=== PATIENT | female | born 1955 | race Caucasian/White ===

== ENCOUNTER 2017-09-04 20:00 | Inpatient (IN) | payer MEDICARE, OTHER ==
[2017-09-04 23:33] LABS: URINE PH (Dip) POC 5.5 (5.0-8.5)
[2017-09-04 23:33] LABS: URINE BLOOD (Dip) POC Trace-intact (NEGATIVE); URINE KETONES (Dip) POC Negative (NEGATIVE); URINE LEUKOCYTE EST (Dip) POC 1+ (NEGATIVE); URINE NITRITE (Dip) POC Positive (NEGATIVE); URINE TOTAL PROTEIN POC 1+ (NEGATIVE)
[2017-09-04] MEDS: ASPIRIN 325 MG TAB PO (23:50)
[2017-09-04] MEDS: NITROGLYCERIN 2% 1 GM OINT PKT TD (23:55)
[2017-09-04] MEDS: ONDANSETRON 4 MG INJ IV (23:55)
[2017-09-04] MEDS: HYDROmorphONE 0.5 MG/0.5 ML SYG IV (23:55)
[2017-09-05] LABS: ADD MAN DIFF? NO
[2017-09-05 00:04] LABS: BASOPHILS % 0.3 % (0.0-2.0); EOSINOPHILS # 0.1 10^3/ul (0.0-0.5); EOSINOPHILS % 1.2 % (0.0-7.0); HEMOGLOBIN 10.8 g/dl (12.0-16.0); LYMPHOCYTES # 1.9 10^3/ul (0.8-2.9); LYMPHOCYTES % 16.9 % (15.0-51.0); MEAN CORPUSCULAR HEMOGLOBIN 26.2 pg (29.0-33.0); MEAN CORPUSCULAR HGB CONC 30.9 g/dl (32.0-37.0); MEAN CORPUSCULAR VOLUME 84.7 fl (82.0-101.0); MEAN PLATELET VOLUME 11.3 fl (7.4-10.4); MONOCYTE # 0.7 10^3/ul (0.3-0.9); MONOCYTES % 6.5 % (0.0-11.0); NEUTROPHIL # 8.2 10^3/ul (1.6-7.5); NEUTROPHILS % 74.6 % (39.0-77.0); PLATELET COUNT 238 10^3/UL (140-415); RED BLOOD COUNT 4.13 10^6/ul (4.20-5.40); RED CELL DISTRIBUTION WIDTH 13.3 % (11.5-14.5)
[2017-09-05 00:20] LABS: INR 0.97
[2017-09-05 00:21] LABS: PARTIAL THROMBOPLASTIN TIME 30.1 Sec (25.0-35.0)
[2017-09-05 00:25] LABS: ALANINE AMINOTRANSFERASE 11 IU/L (13-69); ALBUMIN 4.1 g/dl (3.3-4.9); ALKALINE PHOSPHATASE 132 IU/L (42-121); ANION GAP 19 (8-16); ASPARTATE AMINO TRANSFERASE 13 IU/L (15-46); BLOOD UREA NITROGEN 25 mg/dl (7-20); CALCIUM 9.5 mg/dl (8.4-10.2); CARBON DIOXIDE 24 mmol/L (21-31); CHLORIDE 109 mmol/L (97-110); CREATININE 1.67 mg/dl (0.44-1.00); POTASSIUM 4.1 mmol/L (3.5-5.1); SODIUM 148 mmol/L (135-144); TOTAL PROTEIN 7.8 g/dl (6.1-8.1)
[2017-09-05 00:35] LABS: TROPONIN-I < 0.012 ng/ml (0.00-0.12)
[2017-09-05 00:38] LABS: GLUCOSE 411 mg/dl (70-220)
[2017-09-05] MEDS ORDERED: ACETAMINOPHEN 325 MG TAB PO (02:00)
[2017-09-05] MEDS ORDERED: ONDANSETRON 4 MG INJ IV (02:00)
[2017-09-05] MEDS: INSULIN LISPRO 100 UNIT/ML VIAL SC (02:38)
[2017-09-05] MEDS: HYDROmorphONE 0.5 MG/0.5 ML SYG IV ×2 (02:39→09:44)
[2017-09-05] MEDS ORDERED: ALBUTEROL/IPRATROPIUM (NEB) 3 ML AMP HHN (04:00)
[2017-09-05] MEDS ORDERED: NACL 0.9% 3 ML SYG IV (04:00)
[2017-09-05 06:04] LABS: ADD MAN DIFF? NO
[2017-09-05 06:09] LABS: WHITE BLOOD COUNT 9.7 10^3/ul (4.8-10.8)
[2017-09-05 06:09] LABS: BASOPHILS % 0.4 % (0.0-2.0); EOSINOPHILS # 0.1 10^3/ul (0.0-0.5); EOSINOPHILS % 1.2 % (0.0-7.0); HEMATOCRIT 36.4 % (37.0-47.0); HEMOGLOBIN 11.5 g/dl (12.0-16.0); LYMPHOCYTES # 2.1 10^3/ul (0.8-2.9); LYMPHOCYTES % 21.2 % (15.0-51.0); MEAN CORPUSCULAR HEMOGLOBIN 26.5 pg (29.0-33.0); MEAN CORPUSCULAR HGB CONC 31.6 g/dl (32.0-37.0); MEAN CORPUSCULAR VOLUME 83.9 fl (82.0-101.0); MEAN PLATELET VOLUME 11.5 fl (7.4-10.4); MONOCYTE # 0.8 10^3/ul (0.3-0.9); MONOCYTES % 7.7 % (0.0-11.0); NEUTROPHIL # 6.7 10^3/ul (1.6-7.5); NEUTROPHILS % 69.3 % (39.0-77.0); PLATELET COUNT 237 10^3/UL (140-415); RED BLOOD COUNT 4.34 10^6/ul (4.20-5.40); RED CELL DISTRIBUTION WIDTH 13.5 % (11.5-14.5)
[2017-09-05 06:28] LABS: CREATINE KINASE 29 IU/L (23-200)
[2017-09-05 06:30] LABS: ALANINE AMINOTRANSFERASE 10 IU/L (13-69); ALKALINE PHOSPHATASE 119 IU/L (42-121); ANION GAP 14 (8-16); ASPARTATE AMINO TRANSFERASE 15 IU/L (15-46); BLOOD UREA NITROGEN 26 mg/dl (7-20); CALCIUM 9.6 mg/dl (8.4-10.2); CARBON DIOXIDE 24 mmol/L (21-31); CHLORIDE 114 mmol/L (97-110); CREATININE 1.69 mg/dl (0.44-1.00); GLUCOSE 106 mg/dl (70-220); POTASSIUM 3.9 mmol/L (3.5-5.1); SODIUM 148 mmol/L (135-144)
[2017-09-05 06:31] LABS: ALBUMIN 4.2 g/dl (3.3-4.9); CHOL/HDL RATIO 5.8 RATIO; CHOLESTEROL 206 mg/dl (100-200); HDL CHOLESTEROL 35 mg/dl (35-98); LDL CHOLESTEROL,CALCULATED 133 mg/dl; TRIGLYCERIDES 188 mg/dl (0-149)
[2017-09-05 06:42] LABS: CK INDEX 1.9; CK-MB 0.54 ng/ml (0.0-2.4)
[2017-09-05 07:17] LABS: TROPONIN-I < 0.012 ng/ml (0.00-0.12)
[2017-09-05 07:40] LABS: HEMOGLOBIN A1C 9.4 % (0-5.9)
[2017-09-05] MEDS: INSULIN ASPART [NOVOLOG] 3 ML PEN SC ×7 (08:30→21:00)
[2017-09-05] MEDS: HEPARIN 5,000 UNIT/0.5 ML VIAL SC ×2 (08:32→21:26)
[2017-09-05] MEDS: INSULIN GLARGINE [LANtus] 3 ML PEN SC (08:36)
[2017-09-05] MEDS: ISOSORBIDE MONONITRATE(SR)30 MG TAB PO (08:37)
[2017-09-05] MEDS: FERROUS SULFATE (EC) 325 MG TAB PO (08:37)
[2017-09-05] MEDS: BENAZEPRIL 10 MG TAB PO (08:37)
[2017-09-05] MEDS: FAMOTIDINE 20 MG TAB PO ×2 (08:37→21:22)
[2017-09-05] MEDS: FOLIC ACID 1 MG TAB PO (08:37)
[2017-09-05] MEDS: GABAPENTIN 300 MG CAP PO ×3 (08:37→21:22)
[2017-09-05] MEDS ORDERED: RANITIDINE 150 MG TAB PO (09:00)
[2017-09-05] MEDS: CLOPIDOGREL 75 MG TAB PO (09:44)
[2017-09-05 09:51] LABS: CREATINE KINASE 34 IU/L (23-200)
[2017-09-05 10:05] LABS: CK INDEX 1.4; CK-MB 0.49 ng/ml (0.0-2.4)
[2017-09-05 10:11] LABS: TROPONIN-I < 0.012 ng/ml (0.00-0.12)
[2017-09-05] MEDS: ONDANSETRON 4 MG INJ IV (12:22)
[2017-09-05] MEDS: ACETAMINOPHEN 325 MG TAB PO (12:29)
[2017-09-05] MEDS: METOPROLOL 25 MG TAB PO ×2 (12:32→21:42)
[2017-09-05] MEDS ORDERED: ATORVASTATIN 40 MG TAB PO (21:00)
[2017-09-05] MEDS: SOD CHLORIDE 0.45% 1,000 ML IV (21:21)
[2017-09-05] MEDS: NITROGLYCERIN (SL) 0.4 MG TAB SL (21:22)
[2017-09-05] MEDS: ATORVASTATIN 40 MG TAB PO (22:04)
[2017-09-05] MEDS: FLUOXETINE 20 MG CAP PO (22:04)
[2017-09-06] MEDS: ACCU-CHEK XX (01:01)
[2017-09-06] MEDS: HYDROmorphONE 0.5 MG/0.5 ML SYG IV ×2 (05:55→17:54)
[2017-09-06 06:34] LABS: ADD MAN DIFF? NO
[2017-09-06 06:39] LABS: WHITE BLOOD COUNT 9.8 10^3/ul (4.8-10.8)
[2017-09-06 06:40] LABS: BASOPHILS % 0.3 % (0.0-2.0); EOSINOPHILS # 0.1 10^3/ul (0.0-0.5); EOSINOPHILS % 1.4 % (0.0-7.0); HEMATOCRIT 31.8 % (37.0-47.0); HEMOGLOBIN 9.8 g/dl (12.0-16.0); LYMPHOCYTES # 2.9 10^3/ul (0.8-2.9); LYMPHOCYTES % 29.6 % (15.0-51.0); MEAN CORPUSCULAR HEMOGLOBIN 26.3 pg (29.0-33.0); MEAN CORPUSCULAR HGB CONC 30.8 g/dl (32.0-37.0); MEAN CORPUSCULAR VOLUME 85.5 fl (82.0-101.0); MEAN PLATELET VOLUME 11.8 fl (7.4-10.4); MONOCYTE # 0.7 10^3/ul (0.3-0.9); MONOCYTES % 7.1 % (0.0-11.0); NEUTROPHILS % 61.1 % (39.0-77.0); PLATELET COUNT 228 10^3/UL (140-415); RED BLOOD COUNT 3.72 10^6/ul (4.20-5.40); RED CELL DISTRIBUTION WIDTH 13.8 % (11.5-14.5)
[2017-09-06] MEDS: ACETAMINOPHEN 325 MG TAB PO ×2 (06:58→20:36)
[2017-09-06 07:01] LABS: ALANINE AMINOTRANSFERASE 22 IU/L (13-69); ALBUMIN 3.2 g/dl (3.3-4.9); ALBUMIN/GLOBULIN RATIO 0.96; ALKALINE PHOSPHATASE 102 IU/L (42-121); ANION GAP 17 (8-16); ASPARTATE AMINO TRANSFERASE 17 IU/L (15-46); BLOOD UREA NITROGEN 39 mg/dl (7-20); CALCIUM 8.5 mg/dl (8.4-10.2); CARBON DIOXIDE 24 mmol/L (21-31); CHLORIDE 110 mmol/L (97-110); GLUCOSE 167 mg/dl (70-220); POTASSIUM 4.1 mmol/L (3.5-5.1); SODIUM 147 mmol/L (135-144); TOTAL PROTEIN 6.5 g/dl (6.1-8.1)
[2017-09-06] MEDS: INSULIN GLARGINE [LANtus] 3 ML PEN SC (07:54)
[2017-09-06] MEDS: INSULIN ASPART [NOVOLOG] 3 ML PEN SC ×7 (07:55→20:17)
[2017-09-06 10:11] LABS: IRON 37 ug/dl (35-150)
[2017-09-06] MEDS: HEPARIN 5,000 UNIT/0.5 ML VIAL SC ×2 (10:12→20:50)
[2017-09-06] MEDS: CLOPIDOGREL 75 MG TAB PO (10:14)
[2017-09-06] MEDS: FERROUS SULFATE (EC) 325 MG TAB PO (10:14)
[2017-09-06] MEDS: FAMOTIDINE 20 MG TAB PO ×2 (10:14→20:35)
[2017-09-06] MEDS: ISOSORBIDE MONONITRATE(SR)30 MG TAB PO (10:14)
[2017-09-06] MEDS: GABAPENTIN 300 MG CAP PO ×3 (10:14→20:35)
[2017-09-06] MEDS: FOLIC ACID 1 MG TAB PO (10:14)
[2017-09-06] MEDS: METOPROLOL 25 MG TAB PO ×2 (10:15→20:40)
[2017-09-06] MEDS: BENAZEPRIL 10 MG TAB PO (10:15)
[2017-09-06 10:21] LABS: % IRON SATURATION 20 % SAT (22-52); TOTAL IRON BINDING CAPACITY 186 ug/dl (241-421)
[2017-09-06] MEDS: CEFTRIAXONE 2 GM/50 ML (PMX) 50 ML IVPB (10:41)
[2017-09-06] MEDS: SOD CHLORIDE 0.9% 500 ML IV (10:41)
[2017-09-06] MEDS: SOD CHLORIDE 0.45% 1,000 ML IV (13:10)
[2017-09-06 15:35] LABS: ADD UMIC NO; UR ASCORBIC ACID NEGATIVE (NEGATIVE); UR BILIRUBIN (Dip) NEGATIVE (NEGATIVE); UR BLOOD (Dip) NEGATIVE (NEGATIVE); UR CLARITY CLEAR (CLEAR); UR COLOR STRAW (YELLOW); UR GLUCOSE (Dip) NEGATIVE (NEGATIVE); UR KETONES (Dip) NEGATIVE (NEGATIVE); UR LEUKOCYTE ESTERASE (Dip) NEGATIVE Leu/ul (NEGATIVE); UR NITRITE (Dip) NEGATIVE (NEGATIVE); UR SPECIFIC GRAVITY (Dip) 1.005 (1.003-1.030); UR TOTAL PROTEIN (Dip) NEGATIVE (NEGATIVE); UR UROBILINOGEN (Dip) NEGATIVE (NEGATIVE)
[2017-09-06] MEDS: ATORVASTATIN 40 MG TAB PO (20:35)
[2017-09-06] MEDS: LORAZEPAM 0.5 MG TAB PO (20:35)
[2017-09-06] MEDS: FLUOXETINE 20 MG CAP PO (20:35)
[2017-09-07] MEDS: ACCU-CHEK XX (02:00)
[2017-09-07 05:23] LABS: ADD MAN DIFF? NO
[2017-09-07 05:30] LABS: BASOPHILS % 0.2 % (0.0-2.0); EOSINOPHILS # 0.1 10^3/ul (0.0-0.5); EOSINOPHILS % 1.4 % (0.0-7.0); HEMATOCRIT 33.1 % (37.0-47.0); HEMOGLOBIN 10.2 g/dl (12.0-16.0); LYMPHOCYTES # 2.1 10^3/ul (0.8-2.9); LYMPHOCYTES % 24.6 % (15.0-51.0); MEAN CORPUSCULAR HEMOGLOBIN 26.4 pg (29.0-33.0); MEAN CORPUSCULAR HGB CONC 30.8 g/dl (32.0-37.0); MEAN CORPUSCULAR VOLUME 85.8 fl (82.0-101.0); MEAN PLATELET VOLUME 11.8 fl (7.4-10.4); MONOCYTE # 0.7 10^3/ul (0.3-0.9); MONOCYTES % 8.3 % (0.0-11.0); NEUTROPHIL # 5.5 10^3/ul (1.6-7.5); NEUTROPHILS % 65.1 % (39.0-77.0); PLATELET COUNT 235 10^3/UL (140-415); RED BLOOD COUNT 3.86 10^6/ul (4.20-5.40); RED CELL DISTRIBUTION WIDTH 13.6 % (11.5-14.5)
[2017-09-07 05:30] LABS: WHITE BLOOD COUNT 8.5 10^3/ul (4.8-10.8)
[2017-09-07 05:56] LABS: ANION GAP 16 (8-16); BLOOD UREA NITROGEN 41 mg/dl (7-20); CALCIUM 8.8 mg/dl (8.4-10.2); CARBON DIOXIDE 24 mmol/L (21-31); CHLORIDE 115 mmol/L (97-110); GLUCOSE 166 mg/dl (70-220); POTASSIUM 5.2 mmol/L (3.5-5.1); SODIUM 150 mmol/L (135-144)
[2017-09-07] MEDS: INSULIN ASPART [NOVOLOG] 3 ML PEN SC ×7 (08:10→21:00)
[2017-09-07] MEDS: INSULIN GLARGINE [LANtus] 3 ML PEN SC (08:11)
[2017-09-07] MEDS: ISOSORBIDE MONONITRATE(SR)30 MG TAB PO (08:12)
[2017-09-07] MEDS: GABAPENTIN 300 MG CAP PO ×3 (08:12→23:24)
[2017-09-07] MEDS: METOPROLOL 25 MG TAB PO (08:13)
[2017-09-07] MEDS: FERROUS SULFATE (EC) 325 MG TAB PO ×2 (08:14→10:35)
[2017-09-07] MEDS ORDERED: GLUCAGON 1 MG INJ IM (09:30)
[2017-09-07] MEDS ORDERED: GLUCOSE GEL 15 GRAM TUBE PO ×2 (09:30)
[2017-09-07] MEDS ORDERED: DEXTROSE 50% 50 ML SYRINGE IV ×2 (09:30)
[2017-09-07] MEDS ORDERED: GLUCOSE GEL 15 GRAM TUBE BUCCAL (09:30)
[2017-09-07] MEDS: HYDROmorphONE 0.5 MG/0.5 ML SYG IV (10:34)
[2017-09-07] MEDS: FAMOTIDINE 20 MG TAB PO ×2 (10:34→23:24)
[2017-09-07] MEDS: HEPARIN 5,000 UNIT/0.5 ML VIAL SC ×2 (10:35→23:28)
[2017-09-07] MEDS: FOLIC ACID 1 MG TAB PO (10:35)
[2017-09-07] MEDS: CLOPIDOGREL 75 MG TAB PO (10:35)
[2017-09-07] MEDS: BENAZEPRIL 10 MG TAB PO (10:36)
[2017-09-07] MEDS: CEFTRIAXONE 2 GM/50 ML (PMX) 50 ML IVPB (12:09)
[2017-09-07] MEDS: morphine 2 MG INJ IV (12:09)
[2017-09-07] MEDS: SOD FERRIC GLUC COMPLX 125 MG in SOD CHLORIDE 0.9% 100 ML IVPB (17:44)
[2017-09-07] MEDS: DEXTROSE 5% 1,000 ML IV (17:45)
[2017-09-07] MEDS: FLUOXETINE 20 MG CAP PO (23:25)
[2017-09-07] MEDS: ATORVASTATIN 40 MG TAB PO (23:25)
[2017-09-08] MEDS: ACCU-CHEK XX (02:00)
[2017-09-08] MEDS: HYDROmorphONE 0.5 MG/0.5 ML SYG IV ×4 (02:26→20:20)
[2017-09-08] MEDS: DEXTROSE 5% 1,000 ML IV (03:11)
[2017-09-08] MEDS: HEPARIN 5,000 UNIT/0.5 ML VIAL SC ×3 (05:57→20:26)
[2017-09-08] MEDS: CLOPIDOGREL 75 MG TAB PO (08:35)
[2017-09-08] MEDS: FERROUS SULFATE (EC) 325 MG TAB PO (08:35)
[2017-09-08] MEDS: FOLIC ACID 1 MG TAB PO (08:35)
[2017-09-08] MEDS: FAMOTIDINE 20 MG TAB PO ×2 (08:35→20:20)
[2017-09-08] MEDS: GABAPENTIN 300 MG CAP PO ×3 (08:35→20:20)
[2017-09-08] MEDS: INSULIN ASPART [NOVOLOG] 3 ML PEN SC ×7 (08:37→20:29)
[2017-09-08] MEDS: INSULIN GLARGINE [LANtus] 3 ML PEN SC (08:37)
[2017-09-08 08:53] LABS: ADD MAN DIFF? NO
[2017-09-08 09:02] LABS: BASOPHILS % 0.5 % (0.0-2.0); EOSINOPHILS # 0.1 10^3/ul (0.0-0.5); EOSINOPHILS % 1.1 % (0.0-7.0); HEMATOCRIT 31.4 % (37.0-47.0); HEMOGLOBIN 9.6 g/dl (12.0-16.0); LYMPHOCYTES # 1.8 10^3/ul (0.8-2.9); LYMPHOCYTES % 22.3 % (15.0-51.0); MEAN CORPUSCULAR HEMOGLOBIN 25.9 pg (29.0-33.0); MEAN CORPUSCULAR HGB CONC 30.6 g/dl (32.0-37.0); MEAN CORPUSCULAR VOLUME 84.6 fl (82.0-101.0); MEAN PLATELET VOLUME 11.7 fl (7.4-10.4); MONOCYTE # 0.7 10^3/ul (0.3-0.9); NEUTROPHIL # 5.5 10^3/ul (1.6-7.5); NEUTROPHILS % 66.7 % (39.0-77.0); PLATELET COUNT 234 10^3/UL (140-415); RED BLOOD COUNT 3.71 10^6/ul (4.20-5.40)
[2017-09-08 09:02] LABS: WHITE BLOOD COUNT 8.2 10^3/ul (4.8-10.8)
[2017-09-08 09:31] LABS: ANION GAP 17 (8-16); BLOOD UREA NITROGEN 35 mg/dl (7-20); CALCIUM 8.8 mg/dl (8.4-10.2); CARBON DIOXIDE 22 mmol/L (21-31); CHLORIDE 116 mmol/L (97-110); CREATININE 1.99 mg/dl (0.44-1.00); GLUCOSE 155 mg/dl (70-220); POTASSIUM 4.8 mmol/L (3.5-5.1); SODIUM 150 mmol/L (135-144)
[2017-09-08 09:49] LABS: MAGNESIUM 2.1 mg/dl (1.7-2.5)
[2017-09-08 09:49] LABS: PHOSPHORUS 4.6 mg/dl (2.5-4.9)
[2017-09-08] MEDS: CEFTRIAXONE 2 GM/50 ML (PMX) 50 ML IVPB (11:18)
[2017-09-08] MEDS: LEVOFLOXACIN 500MG/D5W (PMX) 100 ML IVPB (12:33)
[2017-09-08] MEDS ORDERED: AMOXICILLIN 500 MG CAP PO (14:00)
[2017-09-08] MEDS: SOD FERRIC GLUC COMPLX 125 MG in SOD CHLORIDE 0.9% 100 ML IVPB (17:22)
[2017-09-08] MEDS: ATORVASTATIN 40 MG TAB PO (20:19)
[2017-09-08] MEDS: FLUOXETINE 20 MG CAP PO (20:20)
[2017-09-09] MEDS: ACCU-CHEK XX ×2 (02:00→23:22)
[2017-09-09] MEDS: HEPARIN 5,000 UNIT/0.5 ML VIAL SC ×3 (05:26→21:14)
[2017-09-09] MEDS: HYDROmorphONE 0.5 MG/0.5 ML SYG IV ×5 (05:30→22:25)
[2017-09-09] MEDS: INSULIN ASPART [NOVOLOG] 3 ML PEN SC ×7 (08:00→21:00)
[2017-09-09] MEDS: INSULIN GLARGINE [LANtus] 3 ML PEN SC (08:27)
[2017-09-09] MEDS: FERROUS SULFATE (EC) 325 MG TAB PO (08:29)
[2017-09-09] MEDS: FAMOTIDINE 20 MG TAB PO ×2 (08:29→21:13)
[2017-09-09] MEDS: GABAPENTIN 300 MG CAP PO ×3 (08:29→21:12)
[2017-09-09] MEDS: CLOPIDOGREL 75 MG TAB PO (08:29)
[2017-09-09] MEDS: FOLIC ACID 1 MG TAB PO (08:29)
[2017-09-09 09:46] LABS: ADD MAN DIFF? NO
[2017-09-09 09:50] LABS: BASOPHILS % 0.4 % (0.0-2.0); EOSINOPHILS # 0.2 10^3/ul (0.0-0.5); EOSINOPHILS % 2.3 % (0.0-7.0); HEMATOCRIT 31.9 % (37.0-47.0); HEMOGLOBIN 9.9 g/dl (12.0-16.0); LYMPHOCYTES # 1.5 10^3/ul (0.8-2.9); LYMPHOCYTES % 18.4 % (15.0-51.0); MEAN CORPUSCULAR HEMOGLOBIN 26.8 pg (29.0-33.0); MEAN CORPUSCULAR VOLUME 86.4 fl (82.0-101.0); MEAN PLATELET VOLUME 11.7 fl (7.4-10.4); MONOCYTE # 0.8 10^3/ul (0.3-0.9); MONOCYTES % 9.3 % (0.0-11.0); NEUTROPHIL # 5.8 10^3/ul (1.6-7.5); PLATELET COUNT 219 10^3/UL (140-415); RED BLOOD COUNT 3.69 10^6/ul (4.20-5.40); RED CELL DISTRIBUTION WIDTH 13.9 % (11.5-14.5)
[2017-09-09 09:50] LABS: WHITE BLOOD COUNT 8.4 10^3/ul (4.8-10.8)
[2017-09-09 10:08] LABS: BLOOD UREA NITROGEN 33 mg/dl (7-20); CALCIUM 8.9 mg/dl (8.4-10.2); CARBON DIOXIDE 18 mmol/L (21-31); CHLORIDE 115 mmol/L (97-110); CREATININE 2.02 mg/dl (0.44-1.00); GLUCOSE 125 mg/dl (70-220); SODIUM 147 mmol/L (135-144)
[2017-09-09 10:26] LABS: PHOSPHORUS 4.7 mg/dl (2.5-4.9)
[2017-09-09 10:26] LABS: MAGNESIUM 2.2 mg/dl (1.7-2.5)
[2017-09-09 11:57] LABS: ANION GAP 20 (8-16); POTASSIUM 5.6 mmol/L (3.5-5.1)
[2017-09-09] MEDS: NA POLYST SULFON 15 GM/60 ML BTL PO (14:52)
[2017-09-09] MEDS: SOD FERRIC GLUC COMPLX 125 MG in SOD CHLORIDE 0.9% 100 ML IVPB (17:31)
[2017-09-09] MEDS: FLUOXETINE 20 MG CAP PO (21:12)
[2017-09-09] MEDS: ATORVASTATIN 40 MG TAB PO (21:12)
[2017-09-09] MEDS: LORAZEPAM 0.5 MG TAB PO (21:16)
[2017-09-10] MEDS: HYDROmorphONE 0.5 MG/0.5 ML SYG IV ×4 (04:54→21:46)
[2017-09-10] MEDS: HEPARIN 5,000 UNIT/0.5 ML VIAL SC ×3 (04:56→20:36)
[2017-09-10] MEDS: FOLIC ACID 1 MG TAB PO (08:50)
[2017-09-10] MEDS: FERROUS SULFATE (EC) 325 MG TAB PO (08:50)
[2017-09-10] MEDS: CLOPIDOGREL 75 MG TAB PO (08:50)
[2017-09-10] MEDS: GABAPENTIN 300 MG CAP PO ×3 (08:50→20:28)
[2017-09-10] MEDS: FAMOTIDINE 20 MG TAB PO ×2 (08:50→20:28)
[2017-09-10] MEDS: INSULIN ASPART [NOVOLOG] 3 ML PEN SC ×7 (08:53→20:28)
[2017-09-10] MEDS: INSULIN GLARGINE [LANtus] 3 ML PEN SC (08:55)
[2017-09-10 09:01] LABS: ADD MAN DIFF? NO
[2017-09-10 09:07] LABS: WHITE BLOOD COUNT 8.6 10^3/ul (4.8-10.8)
[2017-09-10 09:07] LABS: BASOPHILS % 0.3 % (0.0-2.0); EOSINOPHILS # 0.3 10^3/ul (0.0-0.5); EOSINOPHILS % 3.4 % (0.0-7.0); HEMATOCRIT 31.6 % (37.0-47.0); HEMOGLOBIN 9.6 g/dl (12.0-16.0); LYMPHOCYTES # 1.9 10^3/ul (0.8-2.9); LYMPHOCYTES % 21.8 % (15.0-51.0); MEAN CORPUSCULAR HGB CONC 30.4 g/dl (32.0-37.0); MEAN CORPUSCULAR VOLUME 85.6 fl (82.0-101.0); MEAN PLATELET VOLUME 10.9 fl (7.4-10.4); MONOCYTE # 0.9 10^3/ul (0.3-0.9); MONOCYTES % 10.1 % (0.0-11.0); NEUTROPHIL # 5.5 10^3/ul (1.6-7.5); NEUTROPHILS % 63.7 % (39.0-77.0); PLATELET COUNT 275 10^3/UL (140-415); RED BLOOD COUNT 3.69 10^6/ul (4.20-5.40); RED CELL DISTRIBUTION WIDTH 13.6 % (11.5-14.5)
[2017-09-10 09:21] LABS: ANION GAP 17 (8-16); BLOOD UREA NITROGEN 34 mg/dl (7-20); CARBON DIOXIDE 22 mmol/L (21-31); CHLORIDE 114 mmol/L (97-110); CREATININE 1.88 mg/dl (0.44-1.00); GLUCOSE 149 mg/dl (70-220); SODIUM 148 mmol/L (135-144)
[2017-09-10 09:29] LABS: PHOSPHORUS 5.5 mg/dl (2.5-4.9)
[2017-09-10] MEDS: SOD FERRIC GLUC COMPLX 125 MG in SOD CHLORIDE 0.9% 100 ML IVPB (17:57)
[2017-09-10] MEDS: FLUOXETINE 20 MG CAP PO (20:28)
[2017-09-10] MEDS: ATORVASTATIN 40 MG TAB PO (20:28)
[2017-09-10] MEDS: ACETAMINOPHEN 325 MG TAB PO (20:28)
[2017-09-11] MEDS: ACCU-CHEK XX (01:27)
[2017-09-11] MEDS: LEVOFLOXACIN 250MG/D5W (PMX) 50 ML IVPB (02:26)
[2017-09-11] MEDS: HYDROmorphONE 0.5 MG/0.5 ML SYG IV ×3 (03:50→22:13)
[2017-09-11] MEDS: HEPARIN 5,000 UNIT/0.5 ML VIAL SC ×3 (05:24→21:22)
[2017-09-11 07:56] LABS: ADD MAN DIFF? NO
[2017-09-11] MEDS: INSULIN ASPART [NOVOLOG] 3 ML PEN SC ×7 (08:00→21:00)
[2017-09-11 08:03] LABS: BASOPHILS % 0.2 % (0.0-2.0); EOSINOPHILS # 0.3 10^3/ul (0.0-0.5); EOSINOPHILS % 3.6 % (0.0-7.0); HEMATOCRIT 30.6 % (37.0-47.0); HEMOGLOBIN 9.5 g/dl (12.0-16.0); LYMPHOCYTES # 2.2 10^3/ul (0.8-2.9); LYMPHOCYTES % 24.5 % (15.0-51.0); MEAN CORPUSCULAR HEMOGLOBIN 26.6 pg (29.0-33.0); MEAN CORPUSCULAR VOLUME 85.7 fl (82.0-101.0); MONOCYTE # 0.8 10^3/ul (0.3-0.9); MONOCYTES % 8.7 % (0.0-11.0); NEUTROPHIL # 5.5 10^3/ul (1.6-7.5); NEUTROPHILS % 62.2 % (39.0-77.0); PLATELET COUNT 292 10^3/UL (140-415); RED BLOOD COUNT 3.57 10^6/ul (4.20-5.40); RED CELL DISTRIBUTION WIDTH 13.5 % (11.5-14.5)
[2017-09-11 08:03] LABS: WHITE BLOOD COUNT 8.8 10^3/ul (4.8-10.8)
[2017-09-11] MEDS: INSULIN GLARGINE [LANtus] 3 ML PEN SC (08:22)
[2017-09-11] MEDS: CLOPIDOGREL 75 MG TAB PO (08:29)
[2017-09-11] MEDS: FERROUS SULFATE (EC) 325 MG TAB PO (08:29)
[2017-09-11] MEDS: FAMOTIDINE 20 MG TAB PO ×2 (08:29→21:18)
[2017-09-11] MEDS: GABAPENTIN 300 MG CAP PO ×3 (08:29→21:17)
[2017-09-11] MEDS: FOLIC ACID 1 MG TAB PO (08:29)
[2017-09-11 08:37] LABS: MAGNESIUM 2.1 mg/dl (1.7-2.5)
[2017-09-11 08:37] LABS: PHOSPHORUS 5.2 mg/dl (2.5-4.9)
[2017-09-11 08:42] LABS: ANION GAP 18 (8-16); BLOOD UREA NITROGEN 37 mg/dl (7-20); CALCIUM 8.9 mg/dl (8.4-10.2); CARBON DIOXIDE 23 mmol/L (21-31); CHLORIDE 114 mmol/L (97-110); CREATININE 1.61 mg/dl (0.44-1.00); GLUCOSE 101 mg/dl (70-220); POTASSIUM 4.9 mmol/L (3.5-5.1); SODIUM 150 mmol/L (135-144)
[2017-09-11] MEDS: traMADol 50 MG TAB PO ×3 (09:42→21:18)
[2017-09-11] MEDS: ONDANSETRON 4 MG INJ IV (11:28)
[2017-09-11] MEDS: DEXTROSE 5% 1,000 ML IV (17:16)
[2017-09-11] MEDS: SOD FERRIC GLUC COMPLX 125 MG in SOD CHLORIDE 0.9% 100 ML IVPB (17:16)
[2017-09-11] MEDS: ATORVASTATIN 40 MG TAB PO (21:17)
[2017-09-11] MEDS: FLUOXETINE 20 MG CAP PO (21:17)
[2017-09-12] MEDS: ACCU-CHEK XX (02:00)
[2017-09-12] MEDS: traMADol 50 MG TAB PO ×3 (03:05→14:09)
[2017-09-12] MEDS: HEPARIN 5,000 UNIT/0.5 ML VIAL SC ×2 (05:49→14:14)
[2017-09-12] MEDS: INSULIN ASPART [NOVOLOG] 3 ML PEN SC ×6 (08:00→17:31)
[2017-09-12 08:31] LABS: ADD MAN DIFF? NO
[2017-09-12] MEDS: FOLIC ACID 1 MG TAB PO (08:39)
[2017-09-12] MEDS: FAMOTIDINE 20 MG TAB PO (08:39)
[2017-09-12] MEDS: GABAPENTIN 300 MG CAP PO ×2 (08:39→14:09)
[2017-09-12] MEDS: CLOPIDOGREL 75 MG TAB PO (08:39)
[2017-09-12] MEDS: FERROUS SULFATE (EC) 325 MG TAB PO (08:40)
[2017-09-12 08:42] LABS: WHITE BLOOD COUNT 8.9 10^3/ul (4.8-10.8)
[2017-09-12 08:42] LABS: BASOPHILS % 0.5 % (0.0-2.0); EOSINOPHILS # 0.3 10^3/ul (0.0-0.5); EOSINOPHILS % 3.3 % (0.0-7.0); HEMATOCRIT 31.1 % (37.0-47.0); HEMOGLOBIN 9.7 g/dl (12.0-16.0); MEAN CORPUSCULAR HEMOGLOBIN 26.5 pg (29.0-33.0); MEAN CORPUSCULAR HGB CONC 31.2 g/dl (32.0-37.0); MEAN PLATELET VOLUME 11.2 fl (7.4-10.4); MONOCYTE # 0.8 10^3/ul (0.3-0.9); NEUTROPHIL # 5.7 10^3/ul (1.6-7.5); NEUTROPHILS % 63.6 % (39.0-77.0); PLATELET COUNT 308 10^3/UL (140-415); RED BLOOD COUNT 3.66 10^6/ul (4.20-5.40); RED CELL DISTRIBUTION WIDTH 13.5 % (11.5-14.5)
[2017-09-12] MEDS: INSULIN GLARGINE [LANtus] 3 ML PEN SC (08:42)
[2017-09-12 08:50] LABS: MAGNESIUM 2.1 mg/dl (1.7-2.5)
[2017-09-12 08:52] LABS: ANION GAP 16 (8-16); BLOOD UREA NITROGEN 36 mg/dl (7-20); CALCIUM 9.2 mg/dl (8.4-10.2); CARBON DIOXIDE 24 mmol/L (21-31); CHLORIDE 112 mmol/L (97-110); CREATININE 1.72 mg/dl (0.44-1.00); GLUCOSE 85 mg/dl (70-220); POTASSIUM 4.7 mmol/L (3.5-5.1); SODIUM 147 mmol/L (135-144)
[2017-09-12] MEDS: HYDROmorphONE 0.5 MG/0.5 ML SYG IV (11:08)
== END 2017-09-12 19:08 | DRG 313 ==
LOC: MS4 09-08 01:30 → E/R 20:00 → MS3 09-05 01:34
PROVIDERS: Internal Medicine
DX: R07.89 Other chest pain (principal); N17.9 Acute kidney failure, unspecified; E87.0 Hyperosmolality and hypernatremia; N39.0 Urinary tract infection, site not specified; E11.22 Type 2 diabetes mellitus with diabetic chronic kidney disease; I95.9 Hypotension, unspecified; E11.65 Type 2 diabetes mellitus with hyperglycemia; E78.5 Hyperlipidemia, unspecified; M79.1 Myalgia; M43.8X6 Other specified deforming dorsopathies, lumbar region; D50.9 Iron deficiency anemia, unspecified; R47.9 Unspecified speech disturbances; I12.9 Hypertensive chronic kidney disease with stage 1 through stage 4 chronic kidney disease, or unspecified chronic kidney disease; N18.9 Chronic kidney disease, unspecified; W18.30XA Fall on same level, unspecified, initial encounter; S43.004A Unspecified dislocation of right shoulder joint, initial encounter; R06.00 Dyspnea, unspecified; Z98.890 Other specified postprocedural states
CPT/HCPCS: 36415; 71045; 72100; 72158; 73030; 73030-RT; 80048; 80053; 80061; 81003; 82550; 82553; 82962; 83036; 83540; 83735; 84100; 84443; 84484; 85025; 85610; 85730; 87040; 87086; 93005; 93306; 93970; 96372; 96374; 96375; 96376; 97110; 97162; 97530; 99217; 99285-25